=== PATIENT | male | born 1975 | race Caucasian/White ===

== ENCOUNTER 2019-09-10 09:36 | Outpatient (CLI) | payer BC, SELFPAY ==
--- NOTE | ~2019-09-10 | MR_ITS ---
EXAMINATION: MR brain/brain stem wo con DATE: 09/10/2019 11:04 INDICATION: Headache. TECHNIQUE: Magnetic resonance imaging (MRI) of the brain and brainstem was performed without intraven ous contrast. Sequences included sagittal and axial T1-weighted FSE, axial diffusion-weighted FS EPI, axial T2*-weighted GRE, axial T2-weighted FLAIR Propeller, and axial T2-weighted Propeller. Apparent diffusion coefficient (ADC) maps were created. COMPARISON: None. FINDINGS: There is no intracranial hemorrhage, acute infarction, or abnormal intracranial mass lesion . The ventricles are normal in size. There is mild mucosal thickening in the ethmoid sinuses. The mas toid air cells are normal. The orbits are normal. IMPRESSION: 1. Normal brain. Reviewed, dictated and finalized at location E. IMPRESSION: 1. Normal brain.
== END 2019-09-10 09:37 | disposition home or self-care (01) ==
PROVIDERS: PCP Family Medicine; Visit Provider Family Medicine
DX: R51 Headache (principal)
CPT/HCPCS: 70551

== ENCOUNTER 2020-02-29 06:53 | Emergency (ER) | payer BC, SELFPAY ==
--- NOTE | ~2020-02-29 | XR_ITS ---
EXAMINATION: XR abdomen obstructive series EXAM DATE: 02/29/2020 08:29 INDICATION: Bilious vomiting, nausea vomiting diarrhea for 3 days. TECHNIQUE: Frontal upright projection of the upper abdomen, frontal projection of the lower abdomen f or interpretation. There is no prior study for comparison. FINDINGS: There are cholecystectomy clips. Small amount of colonic stool and gas. No small bowel d ilation, nonobstructive bowel gas pattern. Calcifications in the pelvis are believed to be phlebolit hs. The bones are unremarkable. There is no free intraperitoneal air. The lung bases are clear. IMPRESSION: Unremarkable abdomen x-ray exam. Reviewed, dictated and finalized at location B. TCHER
[2020-02-29 07:00] VITALS: BP 155/106; PULSE 75; RESP 20; TEMP 36.4; O2SAT 98
--- NOTE | 2020-02-29 07:13 | ED.NAVMDI ---
HPI - Nausea/Vomiting/Diarrhea General Chief complaint: Nausea/Vomiting/Diarrhea Stated complaint: thinks he has flu Time Seen by Provider: 02/29/20 07:13 Source: patient Mode of arrival: ambulatory Limitations: no limitations History of Present Illness HPI Narrative: 44-year-old man with a history of gastric bypass comes in today complaining of 3 days of vomiting, diarrhea, headache, body aches and fatigue. Patient states that he has only kept down approximately 20 oz of fluid in the last 24 hours. Initially had vomiting of food stuffs and now is vomiting bile and his diarrhea is green. He denies any blood in his vomitus or diarrhea. Denies chest pain, cough, shortness of breath, sore throat and abdominal pain. He denies any sick exposures. MD elicited complaint: nausea, vomiting and diarrhea Pertinent past history: bowel obstruction and abdominal surgery Onset (ago): day(s) (3) Description of vomiting: food contents and bilious Description of diarrhea: watery Associated nausea: Yes Associated abdominal pain: No Exacerbating factors: eating Relieving factors: none Associated symptoms: headaches, malaise and nausea/vomiting Related Data Home Medications Medication Instructions Recorded Confirmed pantoprazole 40 mg PO DAILY 02/29/20 02/29/20 Allergies Allergy/AdvReac Type Severity Reaction Status Date / Time acetaminophen Allergy Unknown Verified 02/29/20 07:13 [From Darvocet-N] hydromorphone [From Dilaudid] Allergy Unknown Verified 02/29/20 07:13 meperidine [From Demerol] Allergy Unknown Verified 02/29/20 07:13 propoxyphene Allergy Unknown Verified 02/29/20 07:13 [From Darvocet-N] Review of Systems Constitutional: Constitutional: Denies chills, Reports fatigue, Denies fever(s) and Reports weakness Eyes: Eyes: Denies change in vision and Denies photophobia ENT: Denies dysphagia, Denies nasal congestion and Denies sore throat Cardiovascular: Cardiovascular: Denies chest pain and Denies radiating jaw, neck or arm pain Respiratory: Respiratory: Denies cough, Denies dyspnea and Denies wheezing Gastrointestinal: Gastrointestinal: Denies abdominal pain, Reports diarrhea, Reports nausea and Reports vomiting Genitourinary: Genitourinary: Denies dysuria and Denies urinary frequency Musculoskeletal: Musculoskeletal: Denies arthralgias and Denies joint swelling Integumentary/Breasts: Skin/Breast: Denies pruritus, Denies erythema and Denies rash Neurologic: Denies vertigo, Denies dizziness and Denies syncope Hematologic/Lymphatic: Hematologic/Lymphatic: Denies easy bleeding and Denies easy bruising Allergic/Immunologic: Allergic/Immunologic: Denies lip swelling and Denies throat swelling PMFSH Past Medical History Medical History GERD (gastroesophageal reflux disease) Surgical History Surgical History H/O knee surgery Hx of gastric bypass Social History Social History Smoking status: Current every day smoker Alcohol intake: current Alcohol use details: rarely Substance use: never Living arrangements: with family Exam Const: General: healthy appearing and alert Nutritional Appearance: obese Orientation/consciousness: patient oriented x3 Limitations: no limitations Other: mild acute distress HENMT: Head: normal to inspection Ears: external ears normal, TM's normal bilaterally and EAC's normal General nose exam: Normal nares present Face and sinus: normal facial exam Mouth: Yes moist mucous membranes Throat: posterior oropharynx normal Eyes: Cornea: corneas normal Pupils: Equal, round and reactive pupils present EOM: EOMs intact bilaterally Resp: Effort & Inspection: normal respiratory effort and not labored Auscultation: clear to auscultation bilaterally, no rales, no rhonchi and no wheezes Cardio: R
[2020-02-29] MEDS: SODIUM CHLORIDE 0.9% IV 1,000 ML 999 ML IV CONT (07:30)
[2020-02-29] MEDS: ONDANSETRON INJ 4 MG/2 ML VIAL IV PUSH (07:30)
[2020-02-29 07:39] LABS: Influenza Control Valid (Valid)
[2020-02-29 07:48] LABS: SARS-CoV-2 Ag Negative (Negative)
[2020-02-29 08:56] VITALS: BP 135/90; PULSE 59; RESP 15; O2SAT 99
[2020-03-01 17:44] LABS: SARS-CoV-2 RNA PCR Negative
== END 2020-02-29 09:02 | disposition home or self-care (01) ==
PROVIDERS: Emergency Provider Emergency Medicine; PCP Family Medicine
DX: K52.9 Noninfective gastroenteritis and colitis, unspecified (principal)
CPT/HCPCS: 74019; 87426; 87804; 96361; 96374; 99283; 99284; C9803; J2405; J7030; U0003; U0005

== ENCOUNTER 2023-02-18 12:50 | Emergency (ER) | payer OTHER, SELFPAY ==
--- NOTE | ~2023-02-18 | XR_ITS ---
XR chest 1V portable DATE: 02/18/2023 13:43 INDICATION: Post Covid shortness of breath. History of COPD. TECHNIQUE: 2 portable upright AP views on 02/18/2023 at 1342 hours COMPARISON: None FINDINGS: Normal heart size. There is aortic calcification and unfolding. No hilar or mediastinal enl argement. No pulmonary infiltrate or consolidation, pleural effusion or pulmonary vascular congestion or pneumo thorax is detected. Degenerative spurring of the thoracic spine. IMPRESSION: No active cardiopulmonary disease Aortic atherosclerosis Reviewed, dictated and finalized at location B. H ASSEMBLY INSPECTOR
[2023-02-18 12:50] VITALS: BP 175/110; PULSE 73; RESP 20; TEMP 35.9; O2SAT 99
[2023-02-18 13:01] VITALS: O2SAT 100
--- NOTE | 2023-02-18 13:06 | ED.URI ---
HPI - URI/Sore Throat General Chief Complaint: Upper Respiratory Infection Stated Complaint: short of breath; COVID positive on 02/13 Time Seen by Provider: 02/18/23 13:06 Source: patient Mode of arrival: ambulatory Limitations: no limitations History of Present Illness HPI Narrative: 47-year-old male smoker with a history of GERD, [place]-Schlatter, chronic knee pain, status post gastric bypass, COPD was diagnosed with COVID last week. He presents to the ER with -- cough with purulent sputum -- shortness of breath -- right lateral chest pain on deep breathing no fever or chills MD elicited complaint: cough Pertinent past history: COPD Onset (ago): day(s) ( 7 days) Consistency: constant Description of mucous: yellow and green Able to tolerate fluids by mouth: Yes Exacerbating factors: nothing Relieving factors: nothing Associated symptoms: denies other symptoms, myalgias, cough, chest pain and shortness of breath Treatments prior to arrival: none Related Data Home Medications Medication Instructions Recorded Confirmed pantoprazole 40 mg tablet,delayed 40 mg PO DAILY 02/29/20 02/18/23 release Allergies Allergy/AdvReac Type Severity Reaction Status Date / Time acetaminophen Allergy Unknown Verified 02/18/23 12:57 [From Darvocet-N] hydromorphone [From Dilaudid] Allergy Unknown Verified 02/18/23 12:57 meperidine [From Demerol] Allergy Unknown Verified 02/18/23 12:57 propoxyphene Allergy Unknown Verified 02/18/23 12:57 [From Darvocet-N] Review of Systems Review of Systems: All systems reviewed & are unremarkable except as noted in HPI and below Constitutional: Constitutional: Reports as per HPI, Reports no additional constitutional complaints, Reports fatigue and Reports weakness Eyes: Eyes: Reports as per HPI and Reports no additional eye complaints ENT: Reports system reviewed and no additional complaints, except as documented and Reports as per HPI Cardiovascular: Cardiovascular: Reports as per HPI and Reports no additional cardiovascular complaints Respiratory: Respiratory: Reports as per HPI, Reports no additional respiratory complaints, Reports chest congestion, Reports cough and Reports dyspnea Gastrointestinal: Gastrointestinal: Reports as per HPI and Reports no additional gastrointestinal complaints Genitourinary: Genitourinary: Reports no additional male genitourinary complaints Musculoskeletal: Musculoskeletal: Reports no additional musculoskeletal complaints and Reports as per HPI Integumentary/Breasts: Skin/Breast: Reports system reviewed and no additional complaints, except as docu and Reports as per HPI Neurologic: Reports system reviewed and no additional complaints, except as documented and Reports as per HPI Psychiatric: Psychiatric: Reports no additional psychiatric complaints and Reports as per HPI Endocrine: Endocrine: Reports no additional endocrine complaints and Reports as per HPI Hematologic/Lymphatic: Hematologic/Lymphatic: Reports no additional hematologic/lymphatic complaints Allergic/Immunologic: Allergic/Immunologic: Reports no additional allergic/immunologic complaints and Reports as per HPI PMFSH Past Medical History Medical History GERD (gastroesophageal reflux disease) Iliotibial band tendonitis Left knee pain Arm[place]-Schlatter's disease Patellar tendonitis Surgical History Surgical History H/O knee surgery History of laparoscopic cholecystectomy Hx of gastric bypass Family History Family History Unknown Depression Social History Social History Smoking status: Current every day smoker Alcohol intake: current Alcohol use details: rarely Substance use: current Substance use type: marijuana Living arrangements: with [facility]
--- NOTE | 2023-02-18 13:18 | ECG_ITS ---
Measurements Intervals [place] Rate: 74 P: -5 MI: 171 QRS: 5 QRSD: 107 T: 57 QT: 401 QTc: 445 Interpretive Statements SINUS RHYTHM NORMAL ECG NO PREVIOUS ECG AVAILABLE FOR COMPARISON Electronically Signed On 02-18-2023 13:40:50 PRESSURIZATION MECHANIC by Anand Mcnair D.O.
[2023-02-18 13:44] LABS: Basophils Absolute Auto 0.03 K/mm3 (0.00-0.10); Basophils Percent Auto 0.4 % (0.0-1.0); Eosinophils Absolute Auto 0.07 K/mm3 (0.02-0.50); Hematocrit 44.8 % (40.0-54.0); Immature Granulocyte Absolute 0.02 K/mm3 (0.00-0.00); Immature Granulocyte Percent A 0.3 % (0.0-0.0); Lymphocytes Absolute Auto 1.67 K/mm3 (1.10-4.50); Lymphocytes Percent Auto 24.5 % (18.0-42.0); Mean Corpuscular HGB Conc 33.5 g/dL (32.0-36.0); Mean Corpuscular Hemoglobin 32.5 pg (27.0-31.0); Mean Corpuscular Volume 97.2 fL (78.0-102.0); Mean Platelet Volume 10.4 fl (8.7-11.0); Monocytes Absolute Auto 0.31 K/mm3 (0.10-0.90); Monocytes Percent Auto 4.5 % (2.0-11.0); Neutrophils Absolute Auto 4.7 K/mm3 (1.7-7.2); Neutrophils Percent Auto 69.3 % (50.0-70.0); Platelet Count Result 200 K/mm3 (150-420); Red Blood Count 4.61 M/mm3 (4.70-6.10); Red Cell Distribution Width 12.8 % (11.6-14.4); White Blood Count 6.8 K/mm3 (4.8-10.8)
[2023-02-18 13:59] LABS: D Dimer 0.22 mg/L (0.19-0.50); Partial Thromboplastin Time 27.7 SEC (23.90-30.70); Prothrombin Time 11.3 Seconds (9.50-12.10)
[2023-02-18 14:01] LABS: CRP < 0.5 mg/dL (0.0-0.9)
[2023-02-18 14:05] LABS: Alanine Aminotransferase 28 U/L (16-63); Albumin Level 3.9 g/dL (3.4-5.0); Alkaline Phosphatase 52 U/L (46-116); Anion Gap 3 mmol/L (8-16); Aspartate Amino Transferase 17 U/L (15-37); Bilirubin,Total 0.5 mg/dL (0.00-1.00); Blood Urea Nitrogen 11 mg/dL (7-18); Carbon Dioxide 32 mmol/L (21-32); Chloride 104 mmol/L (98-108); Estimated CRCL calculation 124 ml/min; Estimated Glomerular Filt Rate > 60; Glucose 99 mg/dL (70-99); Osmolality Calculated 287 mOsm/kg (285-295); Potassium 4.1 mmol/L (3.5-5.1); Sodium 139 mmol/L (136-145); Total Protein 7.3 g/dL (6.4-8.2); Troponin I 26.9 ng/L (0.00-60.4)
[2023-02-18 14:07] LABS: Lactic Acid Reflex 0.9 mmol/L (0.4-2.0)
[2023-02-18 14:32] VITALS: BP 160/118; PULSE 67; RESP 16; TEMP 36.5; O2SAT 100
== END 2023-02-18 14:32 | disposition home or self-care (01) ==
PROVIDERS: Emergency Provider Internal Medicine Critical Care Medicine; PCP Family Medicine
DX: J44.1 Chronic obstructive pulmonary disease with (acute) exacerbation (principal); U07.1 COVID-19; F17.210 Nicotine dependence, cigarettes, uncomplicated; Z79.899 Other long term (current) drug therapy
CPT/HCPCS: 36415; 71045; 80053; 83605; 84484; 85025; 85380; 85610; 85730; 86140; 93005; 99284

== ENCOUNTER 2023-04-18 09:37 | Outpatient (CLI) | payer OTHER, SELFPAY ==
--- NOTE | ~2023-04-18 | MR_ITS ---
EXAMINATION: MR shoulder LT wo con DATE: 04/18/2023 11:27 INDICATION: Left shoulder injury. TECHNIQUE: Magnetic resonance imaging (MRI) of the left shoulder was performed without intravenous co ntrast. Sequences included axial PD-weighted FS FSE, coronal oblique PD-weighted FS FSE and T2-weight ed FS FSE, and sagittal oblique T2-weighted FS FSE and T1-weighted FSE. COMPARISON: None. FINDINGS: Coracoacromial arch: The acromion undersurface is curved in morphology (type II). There is severe acromioclavicular joint osteoarthritis including inferiorly directed osteophytes. There is mild subacromial/subdeltoid bursit is. Rotator cuff: There is an articular sided partial-thickness tear of supraspinatus and infraspinatus tendons measuri ng 13 mm anterior to posterior by 5 mm proximal to distal by 80% tendon thickness. Teres minor tendon is normal. There is mild subscapularis tendinopathy. Biceps tendon and glenoid labrum: Biceps tendon is in bicipital groove. There is mild intra-articular biceps tendinopathy. There is a t ear of superior labrum from 10:00 to 2:00. Fluid: There is no glenohumeral joint effusion. Bones/cartilage: There is partial-thickness cartilage loss of posterior superior glenoid. Humeral head cartilage is no rmal. IMPRESSION: 1. Articular-sided, partial-thickness tear of supraspinatus and infraspinatus tendons. 2. Mild glenoid chondrosis. SLAP tear. 3. Severe acromioclavicular joint osteoarthritis. 4. Mild subacromial/subdeltoid bursitis. 5. Mild intra-articular biceps tendinopathy. Reviewed, dictated and finalized at location A. S SAFETY ENGINEER IMPRESSION: 1. Articular-sided, partial-thickness tear of supraspinatus and infraspinatus t endons. 2. Mild glenoid chondrosis. SLAP tear. 3. Severe acromioclavicular joint osteoarthritis. 4. Mild subacromial/subdeltoid bursitis. 5. Mild intra-articular biceps tendinopathy.
== END 2023-04-18 09:38 | disposition home or self-care (01) ==
LOC: CHSIMG 09:41
PROVIDERS: PCP Family Medicine; Visit Provider Family Medicine
DX: S49.92XA Unspecified injury of left shoulder and upper arm, initial encounter (principal); S43.432A Superior glenoid labrum lesion of left shoulder, initial encounter; M19.012 Primary osteoarthritis, left shoulder; M75.52 Bursitis of left shoulder; M75.22 Bicipital tendinitis, left shoulder
CPT/HCPCS: 73221